=== PATIENT | male | born 1955 | race Hispanic/Latino ===

== ENCOUNTER 2018-01-14 11:57 | Emergency (ER) | payer OTHER ==
[~2018-01-14] VITALS: Ht 165.1 cm; Wt 106.6 kg
[2018-01-14 12:06] VITALS: BP 164/89
--- NOTE | 2018-01-14 12:22 | ED ANKLE/FOOT INJURY COMPLAINT ---
History of Present Illness General Chief Complaint: Foot or Ankle Injury Stated Complaint: LEFT ANKLE PAIN, X 3 DAYS, NKI Source: patient, old records Exam Limitations: no limitations Vital Signs & Intake/Output Vital Signs & Intake/Output Vital Signs Date Time Temp Pulse Resp B/P B/P Pulse O2 O2 Flow FiO2 Mean Ox Delivery Rate 01/14 1206 98.4 80 20 164/89 96 Room Air Allergies Coded Allergies: NO KNOWN ALLERGIES (10/29/11) Reconcile Medications Amlodipine Besylate (Norvasc) 10 MG TABLET 1 TAB PO DAILY HEART (Reported) Ascorbic Acid (Vitamin C) 1,000 MG TABLET 1 TAB PO DAILY VITAMIN SUPPORT ( Reported) Aspirin (Aspirin*) 325 MG TABLET 1 TAB PO DAILY HEART HEALTH (Reported) Cetirizine HCl (Zyrtec) 10 MG TABLET 1 TAB PO DAILY ALLERGIES (Reported) Cholecalciferol (Vitamin D3) 1,000 UNIT TABLET 1 TAB PO DAILY VITAMIN SUPPORT (Reported) Clopidogrel Bisulfate (Plavix) 75 MG TABLET 1 TAB PO DAILY BLOOD THINNER ( Reported) Empagliflozin (Jardiance) 10 MG TABLET 1 TAB PO DAILY DIABETES (Reported) Exenatide Microspheres (Bydureon Bcise) 2 MG/0.85 ML AUTO.INJCT 1 INJ SC Bose UNKNOWN (Reported) Fluoxetine HCl 20 MG CAPSULE 1 CAP PO DAILY DEPRESSION (Reported) Furosemide 40 MG TABLET 1 TAB PO DAILY WATER RETENTION (Reported) Hydralazine HCl 25 MG TABLET 1.5 TAB PO TID HEART (Reported) Insulin Detemir (Levemir Flextouch) 100 UNIT/ML (3 ML) INSULN.PEN 85 UNITS SC BID DIABETES (Reported) Lisinopril 40 MG TABLET 1 TAB PO DAILY HEART (Reported) Metformin HCl 1,000 MG TABLET 1 TAB PO BID DIABETES (Reported) Metoprolol Tartrate (Lopressor) 100 MG TABLET 1 TAB PO BID HEART (Reported) Omeprazole Magnesium (Prilosec Otc) 20 MG TABLET.DR 1 TAB PO DAILY GI ( Reported) Simvastatin (Simvastatin*) 40 MG TABLET 1 TAB PO QPM CHOLESTEROL (Reported) Triage Note: PT TO ED C/O LEFT ANKLE PAIN X 3 DAYS. DENIES INJURY. TRIED OTC MEDS WITH SOME RELIEF. PAIN IS WORSE WITH WEIGHT BEARING. DECLINING MEDS IN TRIAGE. Triage Nurses Notes Reviewed? yes HPI: Patient noticed that his left ankle began to swell up and started to hurt 3 days ago. There is no radiation of the pain. The pain is aching in nature. The pain increases with ambulation. Patient states that he does not think he injured it in any way. He rates the pain at 5 out of 10. Patient has no other complaints. Past History Travel History Traveled to [place] past 21 day No Medical History Any Pertinent Medical History? see below for history Cardiovascular: hypertension Endocrine: diabetes Surgical History Surgical History: non-contributory Psychosocial History What is your primary language [place] Tobacco Use: Quit >30 days ago ETOH Use: denies use Illicit Drug Use: denies illicit drug use Family History Hx Contributory? No Review of Systems Review of Systems Constitutional: Reports: no symptoms. Respiratory: Reports: no symptoms. Cardiovascular: Reports: no symptoms. Musculoskeletal: Reports: see HPI, joint pain, joint swelling. Neurological/Psychological: Reports: no symptoms. Immunologic/Allergic: Reports: no symptoms. Physical Exam Physical Exam General Appearance: well developed/nourished, alert, awake, mild distress Head: atraumatic Eyes: Bilateral: PERRL, EOMI. Cardiovascular/Respiratory: normal breath sounds, normal peripheral pulses, regular rate/rhythm, no respiratory distress Leg/Knee/Thigh Left: normal range of motion, normal inspection Leg/Knee/Thigh Right: normal range of motion, normal inspection Ankle Left: soft tissue tenderness, swelling Foot Left: normal inspection, normal range of motion Neuro/Vascular: normal motor function, normal sensation Psychiatric: awake, alert, oriented x 3 Progress Differential Diagnosis: gout, fracture, sprain, contusion Plan of Care: Orders Procedure Date/time Status XRY-ANKLE 3 OR MORE VIEWS L 01/14 1222 Active Diagnostic Imaging: Viewed by Me: Radiology Read. Discussed w/RAD: Radiology Read. Radiology Impression: PATIENT: RAY PERKINS PRESENT AGE: 62 PATIENT ACCOUNT NO: [id number] : 55 LOCATION: [facility] ORDERING PHYSICIAN: Silvio Jung MD SERVICE DATE: 01/14/18-1221 EXAM TYPE: RAD - XRY-ANKLE 3 OR MORE VIEWS L EXAMINATION: XR ANKLE, LEFT CLINICAL INFORMATION: Pain and swelling COMPARISON: None TECHNIQUE: AP, lateral, and mortise views of the left ankle. FINDINGS: Osseous alignment is anatomic. No acute fracture is seen. Posterior calcaneal spurring is noted. There is mild soft tissue swelling at the ankle. IMPRESSION: Mild soft tissue swelling. No fracture identified. DICTATED BY: Shahzad Tobar MD DATE/TIME DICTATED:01/14/181318 [employer]:TASHA DATE/TIME TRANSCRIBED:01/14/181318 CONFIDENTIAL, DO NOT COPY WITHOUT APPROPRIATE AUTHORIZATION. <Electronically signed in Other Vendor System> SIGNED BY: Shahzad Tobar MD 01/14/181326 Departure Departure Disposition: HOME OR SELF CARE Condition: Stable Clinical Impression Primary Impression: Left ankle sprain Referrals: Bonny SOMMERS,Michael Lewis MD,[place] (PCP/Family) Additional Instructions: FOLLOW UP WITH DR. WAGONER USE CRUTCHES RETURN FOR ANY CONCERNS Departure Forms: Customer Survey General Discharge Information
[2018-01-14] MEDS ORDERED: LOPRESSOR100 M1 PO (12:48)
[2018-01-14] MEDS ORDERED: METFORMIN HCL1000 M1 PO (12:48)
[2018-01-14] MEDS ORDERED: LISINOPRIL40 M1 PO (12:49)
[2018-01-14] MEDS ORDERED: LEVEMIR FL100 UNIT/1 SC (12:49)
[2018-01-14] MEDS ORDERED: FLUOXETINE HCL20 M2 PO (12:49)
[2018-01-14] MEDS ORDERED: PLAVIX75 M1 PO (12:49)
[2018-01-14] MEDS ORDERED: SIMVASTATIN40 M1 PO (12:50)
[2018-01-14] MEDS ORDERED: NORVASC10 M1 PO (12:50)
[2018-01-14] MEDS ORDERED: ZYRTEC10 M3 PO (12:50)
[2018-01-14] MEDS ORDERED: FUROSEMIDE40 M1 PO (12:50)
[2018-01-14] MEDS ORDERED: ASPIRIN325 M2 PO (12:51)
[2018-01-14] MEDS ORDERED: PRILOSEC OTC20 M1 PO (12:51)
[2018-01-14] MEDS ORDERED: HYDRALAZINE HCL25 M1 PO (12:52)
[2018-01-14] MEDS ORDERED: BYDUREON B2 MG/0.85 SC (12:52)
[2018-01-14] MEDS ORDERED: JARDIANCE10 M1 PO (12:52)
[2018-01-14] MEDS ORDERED: VITAMIN D31000 UNI2 PO (12:53)
[2018-01-14] MEDS ORDERED: VITAMIN C1000 M4 PO (12:53)
--- NOTE | 2018-01-14 13:27 | RADIOLOGY REPORT ---
EXAMINATION: XR ANKLE, LEFT CLINICAL INFORMATION: Pain and swelling COMPARISON: None TECHNIQUE: AP, lateral, and mortise views of the left ankle. FINDINGS: Osseous alignment is anatomic. No acute fracture is seen. Posterior calcaneal spurring is noted. There is mild soft tissue swelling at the ankle. IMPRESSION: Mild soft tissue swelling. No fracture identified.
== END 2018-01-14 13:58 ==
LOC: ERH 11:57
DX: S93.402A Sprain of unspecified ligament of left ankle, initial encounter (principal); X58.XXXA Exposure to other specified factors, initial encounter; Y92.9 Unspecified place or not applicable; Y93.9 Activity, unspecified
CPT/HCPCS: 73610-LT